=== PATIENT | male | born 2000 | race Caucasian/White ===

== ENCOUNTER 2022-01-19 16:29 | Emergency (ER) | payer SELFPAY ==
[2022-01-19] MEDS ORDERED: HYDROCODONE/APAP 7.5/325 MG TAB ONE (16:54)
[2022-01-19] MEDS ORDERED: LIDOCAINE 1% 20 ML MDV ONE (16:54)
[2022-01-19] MEDS ORDERED: TETANUS & DIPHTHERIA TOX,ADULT 0.5 ML VIAL ONE (16:54)
--- NOTE | 2022-01-19 17:59 | RAD REPORT ---
EXAM DESCRIPTION: CT - Facial Bones W/ Mpr - 01/19/2022 5:04 pm CLINICAL HISTORY: Trip and fall, blunt force trauma to the face COMPARISON: None. TECHNIQUE: Axial 2 millimeter thick images of the facial bones were obtained with sagittal and coron al reconstruction imaging. All CT scans are performed using dose optimization technique as appropriate and may include automated exposure control or mA/KV adjustment according to patient size. FINDINGS: A small 4 mm sized fracture is present at the anterior nasal spine (junction of the anteri or superior midline maxilla with the anterior inferior margin of the nasal septum). No displacement o r angulation. No fracture of the nasal bone and the fracture line does not extend further into the ma xilla. Soft tissue wound to the upper midline lip is present. No retained foreign body. Paranasal sinuses are clear. No fracture of the mandible. Mandibular condyles are normally positioned . Mastoid air cells are clear. No globe or orbital content abnormality seen. IMPRESSION: Small fracture fragment is present the anterior nasal spine with overlying soft tissue w ound to the upper lip. No other fracture or acute finding seen. No foreign body.
--- NOTE | 2022-01-19 20:29 | EDPHYS ---
Physician Documentation [facility] Name: Zach Tijerina Age: 21 yrs Sex: Male : 2000 Arrival Date: 01/19/2022 Time: 16:31 Bed Treatment Private MD: ED Physician Christoph Ford HPI: 01/19 20:57 This 21 yrs old Male presents to ER via Ambulatory with complaints of Fall Injury, kb Laceration To Lip. 20:57 The patient has a laceration related to: carrying plywood, tripped and fell causing kb plywood to hit pt in the mouth occurred at home, and there are no complicating factors. The injury was accidental. The laceration(s) is(are) located on the upper lip. Onset: The symptoms/episode began/occurred just prior to arrival. Associated signs and symptoms: The patient has no apparent associated signs or symptoms. The patient has not experienced similar symptoms in the past. The patient has not recently seen a physician. Historical: - Allergies: 16:39 No Known Allergies; jb4 - PMHx: 16:39 None; jb4 - PSHx: 16:39 None; jb4 - Immunization history:: Adult Immunizations up to date, Last tetanus immunization: unknown. - Social history:: Smoking status: Reported history of juuling and/or vaping. ROS: 20:55 Constitutional: Negative for fever, chills, and weight loss. kb 20:55 Skin: Positive for laceration(s), of the upper lip. 20:55 All other systems are negative. Exam: 20:55 Constitutional: This is a well developed, well nourished patient who is awake, alert, kb and in no acute distress. ENT: Moist Mucous membranes Respiratory: Respirations even and unlabored. No increased work of breathing. Talking in full sentences MS/ Extremity: Pulses equal, no cyanosis. Neurovascular intact. Full, normal range of motion. Neuro: Awake and alert, GCS 15, oriented to person, place, time, and situation. Moves all extremities. Normal gait. Psych: Awake, alert, with orientation to person, place and time. Behavior, mood, and affect are within normal limits. 20:55 Skin: 2 lacerations to outer upper lip measuring 2.5cm combined, inner upper lip laceration measuring 2cm. Vital Signs: 16:55 BP 126 / 78; Pulse 115; Resp 18 S; Temp 97.5(TE); Pulse Ox 100% on R/A; Pain 7/10; jd3 Laceration: 20:11 Wound Repair of 2.5cm ( 1.0in ) subcutaneous laceration to outer upper lip. Irregularly kb shaped.. Distal neuro/vascular/tendon intact. Anesthesia: Wound infiltrated with 2 mls of 1% lidocaine. Wound prep: Extensive cleansing, Wound irrigation. Skin closed with 6 5-0 fast absorbing gut using simple sutures and sterile technique. Patient tolerated well. MDM: 16:37 Patient medically screened. kb 19:21 ED course: Dr Pham evaluated laceration as well. Recommended ENT consult. Dr Jasmine crane called, voicemail left. 20:10 Data reviewed: vital signs, nurses notes. Data interpreted: Pulse oximetry: on room air kb is 100 %. Interpretation: normal. Counseling: I had a detailed discussion with the patient and/or guardian regarding: the historical points, exam findings, and any diagnostic results supporting the discharge/admit diagnosis, radiology results, the need for outpatient follow up, a family practitioner, to return to the emergency department if symptoms worsen or persist or if there are any questions or concerns that arise at home. Physician consultation: Clementina Ferraro MD was contacted at 19:42, regarding consult, patient's condition, recommended closure with sutures and PCN based antibiotics. 20:53 ED course: 2 outer lacerations measuring 2.5cm combined closed with 6 simple sutures kb using 5-0 fast absorbing gut. inner laceration measuring 2cm closed with 5-0 chromic gut using 4 simple sutures. . 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 Exp: jd3 10/20/2023. Lot #: [id number]. } Route: IM; Site: left deltoid; 18:00 Follow up: Response: No adverse reaction jd3 17:00 Drug: [place] (HYDROcodone-acetaminophen) (7.5 mg-325 mg) 1 tabs Route: PO; jd3 18:00 Follow up: Response: No adverse reaction; RASS: Alert and Calm (0) jd3 Disposition: 01/20 08:13 Co-signature as Attending Physician, Christoph Ford MD I agree with the assessment and kdr plan of care. Disposition Summary: 01/19/22 20:28 Discharge Ordered Location: Home kb Condition: Stable kb Diagnosis - Fracture of nasal bones kb - Laceration of lip and oral cavity without foreign body kb Followup: kb - With: Emergency Department - When: As needed - Reason: Worsening of condition Followup: kb - With: Private Physician - When: 2 - 3 days - Reason: Recheck today's complaints, Continuance of care, Re-evaluation by your physician Discharge Instructions: - Discharge Summary Sheet kb - Mouth Laceration, [id number] kb - Nasal Fracture, [id number] kb Forms: - Medication Reconciliation Form kb - Thank You Letter kb - Antibiotic Education kb - Prescription Opioid Use kb Prescriptions: - Augmentin 875-125 mg Oral Tablet - take 1 tablet by ORAL route every 12 hours for 10 days; 20 tablet; Refills: 0, kb Product Selection Permitted Signatures: Dispatcher [employer] EDNY Gloria Mayfield, ELMER STYLES-Christoph Holliday MD MD [facility] Zach Cervantes, RN RN jb4 Mohsen Enrique RN RN jd3 Corrections: (The following items were deleted from the chart) 01/19 20:14 20:11 Wound Repair of 2cm ( 0.8in ) subcutaneous laceration to outer upper lip. kb Irregularly shaped.. Distal neuro/vascular/tendon intact. Anesthesia: Wound infiltrated with 2 mls of 1% lidocaine. Wound prep: Extensive cleansing, Wound irrigation. Skin closed with 6 5-0 fast absorbing gut using simple sutures and sterile technique. Patient tolerated well. kb
--- NOTE | 2022-01-19 20:29 | ER ---
Nurse's Notes [facility] Name: Zach Tijerina Age: 21 yrs Sex: Male : 2000 Arrival Date: 01/19/2022 Time: 16:31 Bed Treatment Private MD: Diagnosis: Fracture of nasal bones;Laceration of lip and oral cavity without foreign body Presentation: 01/19 16:37 Chief complaint: Patient states: I was working and tripped and hit my face on a piece jb4 of [employer]. Coronavirus screen: At this time, the client does not indicate any symptoms associated with coronavirus-19. Ebola Screen: No symptoms or risks identified at this time. Complicating Factors: Glass or an other foreign body is present in the wound. Initial Sepsis Screen: Does the patient meet any 2 criteria? No. Patient's initial sepsis screen is negative. Does the patient have a suspected source of infection? No. Patient's initial sepsis screen is negative. Risk Assessment: Do you want to hurt yourself or someone else? Patient reports no desire to harm self or others. Onset of symptoms was January 19, 2022. Transition of care: patient was not received from another setting of care. 16:37 Method Of Arrival: Ambulatory jb4 16:37 Acuity: TIA 3 jb4 Historical: - Allergies: 16:39 No Known Allergies; jb4 - PMHx: 16:39 None; jb4 - PSHx: 16:39 None; jb4 - Immunization history:: Adult Immunizations up to date, Last tetanus immunization: unknown. - Social history:: Smoking status: Reported history of juuling and/or vaping. Screenin:58 Abuse screen: Denies threats or abuse. Nutritional screening: No deficits noted. jd3 Tuberculosis screening: No symptoms or risk factors identified. Fall Risk Ambulatory Aid- None/Bed Rest/Nurse Assist (0 pts). Gait- Normal/Bed Rest/Wheelchair (0 pts) Mental Status- Oriented to own ability (0 pts). Total Roque Fall Scale indicates No Risk (0-24 pts). Assessment: 16:55 General: Appears in no apparent distress. comfortable, Behavior is calm, cooperative, jd3 appropriate for age. Pain: Complains of pain in mouth Quality of pain is described as tender. Neuro: Alba Agitation-Sedation Scale (RASS): 0 - Alert and Calm Level of Consciousness is awake, alert, obeys commands, Oriented to person, place, time, situation. Cardiovascular: Denies chest pain, Capillary refill < 3 seconds Patient's skin is warm and dry. Respiratory: Airway is patent Respiratory effort is even, unlabored, Respiratory pattern is regular, symmetrical, Denies cough, shortness of breath. GI: No signs and/or symptoms were reported involving the gastrointestinal system. : No signs and/or symptoms were reported regarding the genitourinary system. EENT: No signs and/or symptoms were reported regarding the EENT system. Derm: Skin is intact, Skin is dry, Skin is normal, Skin temperature is warm. Musculoskeletal: Circulation, motion, and sensation intact. Range of motion: intact in all extremities. Injury Description: Laceration sustained to upper lip is 2.6 to 7.5 cm long, small amount of bleeding noted that was stopped with pressure. 17:55 Reassessment: Patient appears in no apparent distress at this time. No changes from [facility] previously documented assessment. Patient and/or family updated on plan of care and expected duration. Pain level reassessed. Patient is alert, oriented x 3, equal unlabored respirations, skin warm/dry/pink. 18:29 Reassessment: Patient appears in no apparent distress at this time. Patient and/or jd3 family updated on plan of care and expected duration. Pain level reassessed. Patient is alert, oriented x 3, equal unlabored respirations, skin warm/dry/pink. resting in bed awaiting suture repair. Vital Signs: 16:55 BP 126 / 78; Pulse 115; Resp 18 S; Temp 97.5(TE); Pulse Ox 100% on R/A; Pain 7/10; jd3 ED Course: 16:31 Patient arrived in ED. as 16:33 Gloria Mayfield FNP-C [facility]. kb 16:33 Christoph Ford MD is Attending Physician. kb 16:39 Triage completed. jb4 16:39 Arm band placed on right wrist. jb4 16:43 Mohsen Enrique, MP is Primary Nurse. jd3 16:58 Patient has correct armband on for positive identification. Bed in low position. Call j light in reach. Side rails up X 1. Adult w/ patient. Pulse ox on. NIBP on. 17:06 CT Facial Bones W/O Con In Process Unspecified. EDMS 19:18 Primary Nurse role handed off by Mohsen Enrique RN eb 20:51 Eileen Toro, RN is Primary Nurse. vc1 20:51 Assist provider with laceration repair on upper lip and mouth that was 2.5 cm. or less vc1 using sutures. Set up tray. Performed by Gloria PAYNE Patient tolerated well. Patient did not have IV access during this emergency room visit. Administered Medications: 17:00 Drug: Lidocaine (1 %) 1 vials {Note: at bedside for lac repair.} Volume: 20 ml; Route: jd3 Infiltration; 17:00 Drug: Tetanus-Diphtheria Toxoid Adult 0.5 ml {Marker Maker: [employer]. Exp: jd3 10/20/2023. Lot #: [id number]. } Route: IM; Site: left deltoid; 18:00 Follow up: Response: No adverse reaction jd3 17:00 Drug: [place] (HYDROcodone-acetaminophen) (7.5 mg-325 mg) 1 tabs Route: PO; jd3 18:00 Follow up: Response: No adverse reaction; RASS: Alert and Calm (0) jd3 Medication: 16:58 VIS not applicable for this client. jd3 Outcome: 20:28 Discharge ordered by . kb 20:53 Discharged to home ambulatory. vc1 20:53 Condition: good 20:53 Discharge instructions given to patient, Instructed on discharge instructions, follow up and referral plans. medication usage, wound care, Demonstrated understanding of instructions, follow-up care, medications, wound care, Prescriptions given X 1. 20:53 Patient left the ED. vc1 Signatures: Dispatcher [employer] EDMO Gloria Mayfield FNP-C FNP-Mckayla Zhao James RN RN jb4 Mohsen Enrique RN RN jd3 Botello, Elizabeth eb Calcote, Vanessa, RN RN vc1
[2022-01-19 21:27] VITALS: BP 126/78; TEMP 97.5; O2SAT 100
== END 2022-01-19 20:53 | disposition home or self-care (01) ==
LOC: ER 16:29
PROC: 0CQ0XZZ Repair Upper Lip, External Approach (ICD-10-PCS; principal; 2022-01-19)
DX: S02.2XXA Fracture of nasal bones, initial encounter for closed fracture (principal); S01.511A Laceration without foreign body of lip, initial encounter; Z23 Encounter for immunization
CPT/HCPCS: 70486; 76377; 90471; 90714; 99284